=== PATIENT | male | born 1970 | race Hispanic/Latino ===

== ENCOUNTER 2018-08-09 15:16 | Emergency (ER) | payer SELFPAY | END 2018-08-09 18:39 | disposition home or self-care (01) | LOC: ERS 15:16 | DX: H54.61 Unqualified visual loss, right eye, normal vision left eye (principal); F17.210 Nicotine dependence, cigarettes, uncomplicated | CPT/HCPCS: 99283 ==

== ENCOUNTER 2019-06-20 14:41 | Emergency (ER) | payer SELFPAY ==
[2019-06-20] MEDS ORDERED: Proparacaine 0.5% Opth 15 ML BOT ONE (15:34)
[2019-06-20] MEDS ORDERED: Fluorescein Opthalmic Strip ONE (15:34)
== END 2019-06-20 17:00 | disposition home or self-care (01) ==
LOC: ERS 14:41
DX: H21.01 Hyphema, right eye (principal); F17.210 Nicotine dependence, cigarettes, uncomplicated
CPT/HCPCS: 99283